=== PATIENT | female | born 1980 | race Hispanic/Latino ===

== ENCOUNTER 2018-04-05 20:23 | Emergency (ER) | payer OTHER ==
[2018-04-05] MEDS ORDERED: PREDNISONE 20 MG TABLET ONE ×2 (21:06→21:07)
== END 2018-04-05 21:18 | disposition home or self-care (01) ==
LOC: EDH 20:23
DX: L30.9 Dermatitis, unspecified (principal); Z91.010 Allergy to peanuts; Z91.018 Allergy to other foods; Z90.710 Acquired absence of both cervix and uterus; Z98.890 Other specified postprocedural states

== ENCOUNTER 2018-06-22 16:28 | Emergency (ER) | payer SELFPAY | END 2018-06-22 17:30 | disposition home or self-care (01) | LOC: EDH 16:28 | DX: H92.02 Otalgia, left ear (principal); L30.9 Dermatitis, unspecified; D71 Functional disorders of polymorphonuclear neutrophils; Z90.710 Acquired absence of both cervix and uterus; Z91.010 Allergy to peanuts; Z91.018 Allergy to other foods | CPT/HCPCS: 99281 ==